=== PATIENT | female | born 1965 | race Caucasian/White ===

== ENCOUNTER → 2021-11-08 09:10 | Outpatient (BNVA) | payer OTHER, SELFPAY | PROVIDERS: PCP Internal Medicine; Visit Provider Internal Medicine Rheumatology | DX: M65.4 Radial styloid tenosynovitis [de Quervain] (principal); M25.531 Pain in right wrist | CPT/HCPCS: 20550 ==

== ENCOUNTER → 2022-09-19 09:48 | Outpatient (BNVA) | payer OTHER, SELFPAY | PROVIDERS: PCP Internal Medicine; Visit Provider Internal Medicine Rheumatology | DX: Z13.89 Encounter for screening for other disorder (principal) ==

== ENCOUNTER 2023-12-19 09:36 | Outpatient (AMB) | payer OTHER, SELFPAY ==
--- NOTE | 2023-12-19 09:39 | A.OFFVIS_ITS ---
Vital Signs 12/19/23 09:48 Height 5 ft 4 in Weight 201 lb 8.04 oz BMI 34.6 BP 115/80 Blood Pressure Location Rt brachial Position Sitting Respiration 16 Pulse 82 Pulse Source Pulse Oximeter Pulse Oximetry (%) 95 Oxygen Delivery Method Room Air Intake Visit Reasons: Rt Wrist pain/inj/CM Intake Note: Patient present for Rt. wrist pain/inj. Allergies No Known Allergies Allergy (Verified 12/19/23 09:43) Medication List - Last Reconciled 12/19/23 by Vivian Andrew MD albuterol sulfate 90 mcg/actuation 2 puffs inhalation Q6H PRN atorvastatin 20 mg PO DAILY cimetidine 200 mg PO BID cimetidine 300 mg PO BID cranberry 400 mg PO DAILY empagliflozin (Jardiance) 10 mg PO DAILY gabapentin 300 mg PO TID glipizide 10 mg PO QAM insulin glargine (Lantus Solostar U-100 Insulin) 10 units subcut QPM levothyroxine 100 mcg PO DAILY lisinopril 2.5 mg PO DAILY loratadine (Allergy Relief (loratadine)) 10 mg PO DAILY magnesium 500 mg PO DAILY metformin 1,000 mg PO BID milk thistle 500 mg PO DAILY montelukast (Singulair) 10 mg PO DAILY pen needle, diabetic (BD Ольга 2nd Gen Pen Needle) As directed sertraline 25 mg PO DAILY trazodone 50 mg PO BEDTIME HPI Comments Details: Patient returns requesting injection for return of her right wrist pain. She had an injection for de Quervain tenosynovitis the involving the right thumb extensor tendon. This was done by Dr. Garcia back in 09/2022. She stated that she had a total of 3 injections involving the right hand and to injections for the left hand. She stated that the injections usually last about a year. She feels that this time it lasted more than a year because she had time off of work for rotator cuff surgery. 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 She had similar symptoms in the left thumb that were injected in the past but have been stable recently. There has been no redness or swelling. [facility] Medical History Rotator cuff tear Dental crowns present Carpal tunnel syndrome of right wrist De Quervain's tenosynovitis, right Wrist pain, right Depression Hyperlipidemia Hypertension Type 2 diabetes mellitus Family History Mother Lung cancer Sister Breast cancer Family/Other Breast cancer Brother Prostate cancer Social History Household Members: Significant Other Both parents involved: No Caregiver staying overnight: No Housing: House Are you a primary career technical supervisor to a significant other at home: No Do you presently have visiting nurse or other home services: No 75 years or older and lives alone: No Alcohol intake: current Alcohol intake frequency: holidays/special occasions only Alcohol type: wine and hard liquor Patient Tobacco Use Status: Never used Tobacco e-Cigarette/Vaping Use: Never Used service: No Current occupational status: employed 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 Systems [employer] Reports arthralgias, Reports limited range of motion and Reports stiffness Physical Exam Vital Signs: Last Vital Signs Pulse 82 12/19/23 09:48 Resp 16 12/19/23 09:48 BP 115/80 12/19/23 09:48 Pulse Ox 95 12/19/23 09:48 Oxygen Delivery Method Room Air 12/19/23 09:48 BMI result Body Mass Index 34.6 Const General: cooperative, healthy appearing and comfortable Nutritional Appearance: obese Orientation/consciousness: patient oriented x3 Limitations: no limitations HEENT Head: Yes normocephalic and Yes atraumatic Mouth: moist mucous membranes Resp Effort & Inspection: normal respiratory effort and able to speak in complete sentences Skin General skin exam: no rashes or lesions noted Neuro General: patient oriented x3 Extrem Other: Positive Clayton's test on the right hand No CMC tenderness bilaterally Negative Clayton's test on the left Office Procedures Tendon Injection Tendon Injection Details: With patient's consent. The right wrist was prepped with ChloraPrep and alcohol. Under a topical ethyl chloride spray the thumb extensor tendon sheath was injected with 20 mg of triamcinolone and 0.2 cc of 1% lidocaine. The patient tolerated the procedure without any acute adverse effects. 63051-[id number] Tendon Sheath Injection All charges added?: Procedure code (CPT) selection complete Assessment & Plan Assessment & Plan (1) De Quervain's tenosynovitis, right: Comment: History of left de Quervain tenosynovitis injections, 4656-9204 Code(s): M65.4 - Radial styloid tenosynovitis [de Quervain] Category: Medical Plan: She has some return of pain along the thumb extensor tendon consistent with some de Quervain tenosynovitis.? We discussed possible surgical intervention or anoth er try with a local corticosteroid injection.? We reviewed potential side effects of such injections.? Including fat atrophy, skin depigmentation, spike in her blood sugar, patient has a blood sugar monitor and will give her cell an insulin shot using her sliding scale if needed when she gets home. ?The right wrist was prepped with ChloraPrep and alcohol.? Under a topical ethyl chloride spray the thumb extensor tendon sheath was injected with 20 mg of triamcinolone and 0.2 cc of 1% lidocaine.? The patient tolerated the procedure without any acute adverse effects.? She will see how this works out over the next few months.? If symptoms continue to recur here before 6 months or do not respond as well as previously she could call us for referral to see a hand surgeon. Plan I spent 15 minutes reviewing patient's chart, evaluating patient, counseling patient and documenting in the chart Orders: Orders AMB Tendon Injection Today M65.4 - Radial styloid tenosynovitis [de Quervain] Coding Level of Care Code Est Pt Level 3 (87938) Diagnoses De Quervain's tenosynovitis, right M65.4 CPT Codes Tendon Injection - Tendon Injection 1: 67746-Sjdyyz Tendon Sheath Injection ([id number])
[2023-12-19 09:48] VITALS: BP 115/80; PULSE 82; RESP 16; O2SAT 95; BMI 34.6
== END 2023-12-19 10:26 | disposition home or self-care (01) ==
PROVIDERS: PCP Internal Medicine; Visit Provider Student in an Organized Health Care Education/Training Program
DX: M65.4 Radial styloid tenosynovitis [de Quervain] (principal)
CPT/HCPCS: 20550; 99213

== ENCOUNTER → 2023-12-19 09:36 | Outpatient (BNVA) | payer OTHER, SELFPAY | PROVIDERS: PCP Internal Medicine; Visit Provider Student in an Organized Health Care Education/Training Program | DX: M65.4 Radial styloid tenosynovitis [de Quervain] (principal) | CPT/HCPCS: 20550; J3301 ==

== ENCOUNTER 2024-10-21 08:41 | Outpatient (AMB) | payer OTHER, SELFPAY ==
[2024-10-21 08:44] VITALS: BP 120/70; PULSE 86; O2SAT 98; BMI 29.2
--- NOTE | 2024-10-21 08:44 | A.OFFVIS_ITS ---
Vital Signs 10/21/24 08:44 Height 5 ft 4 in Weight 169 lb 15.622 oz BMI 29.2 BP 120/70 Blood Pressure Location Lt brachial Position Sitting Pulse 86 Pulse Source Pulse Oximeter Pulse Oximetry (%) 98 Oxygen Delivery Method Room Air Intake Visit Reasons: Rt Wrist Pain/inj Intake Note: Patient present for Rt. wrist pain/inj.? Allergies No Known Allergies Allergy (Verified 10/21/24 08:47) HPI HPI Rt Wrist Pain/inj: Details: Last Saturday she developed swelling. Bracing and icing helps. Takes aleve x2 BID and two tylenol. [facility] Medical History Rotator cuff tear Dental crowns present Carpal tunnel syndrome of right wrist De Quervain's tenosynovitis, right Wrist pain, right Depression Hyperlipidemia Hypertension Type 2 diabetes mellitus Family History Mother Lung cancer Sister Breast cancer Family/Other Breast cancer Brother Prostate cancer Social History Household Members: Significant Other Both parents involved: No Caregiver staying overnight: No Housing: House Are you a primary patient care coordinator to a significant other at home: No Do you presently have visiting nurse or other home services: No 75 years or older and lives alone: No Alcohol intake: current Alcohol intake frequency: holidays/special occasions only Alcohol type: wine and hard liquor Patient Tobacco Use Status: Never used Tobacco e-Cigarette/Vaping Use: Never Used service: No Current occupational status: employed 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 Tenderness to palpate along 1st extensor compartment.Positive Clayton test. Office Procedures AMB Tendon Injection Tendon Injection Details: Right 1st extensor compartment Prep: site was prepped using aseptic technique Injected: 10 mg of, Kenalog, with 0.25 mL of and 1% plain lidocaine Procedure: Verbal informed consent was obtained. The patient tolerated the procedure well. Postprocedure protocol was discussed with patient. [id number]-[id number] Tendon Sheath Injection All charges added?: Procedure code (CPT) selection complete Office Meds Kenalog 40 mg/mL suspension for injection Performing Provider: Josef Tam MD Performing Location: [facility] Administered by: Josef Tam MD on 10/21/24 09:21 Dose Route Admin Location Dispensed Lot Number Expiration Date [facility] [employer] 10 mg Tendon Sheath Inj. 1 mL [id number] [place] [employer] lidocaine (PF) 10 mg/mL (1 %) injection solution Performing Provider: Josef Tam MD Performing Location: [facility] Rheumatology-[facility] Administered by: Josef Tam MD on 10/21/24 09:21 Dose Route Admin Location Dispensed Lot Number Expiration Date [facility] [employer] 0.25 mL Infiltration 2 mL [id number] [facility] Assessment & Plan Assessment & Plan (1) De Quervain's tenosynovitis, right: Comment: History of right de Quervain tenosynovitis injections, 6090-1910, 11/08/2021, 09/19/2022, 12/19/2023. 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 Code(s): M65.4 - Radial styloid tenosynovitis [de Quervain] Category: Medical Plan: Patient received cortisone injection for treatment of right de Quervain tenosynovitis Return to clinic in 1 year or sooner if needed Orders: Orders AMB Tendon Injection Today M65.4 - Radial styloid tenosynovitis [de Quervain] Medications: New Kenalog (triamcinolone acetonide) 10 mg (0.25 mL) Tendon Sheath Inj. ONCE 0.25 mL 0RF NS M65.4 - Radial styloid tenosynovitis [de Quervain] lidocaine (PF) 0.25 mL Infiltration ONCE 2 mL 0RF M65.4 - Radial styloid tenosynovitis [de Quervain] Coding Level of Care Code Est Pt Level 3 (82054) Complex EM visit Add On G2211 Diagnoses De Quervain's tenosynovitis, right M65.4 CPT Codes Tendon Injection - Tendon Injection 1: 32127-Ktrdzd Tendon Sheath Injection ([id number])
--- OUTSIDE RECORDS SUMMARY | 2024-10-21 09:58 | XMS_ITS | Clinical Summary ---
Author Organization Former[facility] Address [address] [place] [address] Care Team Providers Care [employer] Plasma Etcher Name Role Phone Emmanuelle Jensen MD Primary Care Provider [phone] Allergies Active Allergy Reactions Criticality Noted Date Comments Seasonal 04/25/2020 Medications Medication Sig Dispensed Refills Start Date End Date Status glipiZIDE (GLUCOTROL XL) ER 24 hr tablet 2.5 mg Take 5 mg by mouth 2 (two) times a day. 0 Active metFORMIN (GLUCOPHAGE) tablet 500 mg Take 1,000 mg by mouth 2 (two) times a day with meals. 0 Active lisinopril (PRINIVIL,ZESTRIL) tablet 2.5 mg Take 2.5 mg by mouth daily. 0 Active montelukast (SINGULAIR) 10 MG tablet Take 10 mg by mouth every night at bedtime. 0 Active levothyroxine (SYNTHROID, LEVOXYL) tablet 100 mcg Take 100 mcg by mouth every morning on an empty stomach. 0 Active loratadine (CLARITIN) 10 MG tablet Take 10 mg by mouth daily. 0 Active traZODone (DESYREL) 50 MG tablet Take 50 mg by mouth every night at bedtime. 0 Active sertraline (ZOLOFT) 50 MG tablet Take 50 mg by mouth daily. 0 Active gabapentin (NEURONTIN) 300 MG capsule Take 300 mg by mouth 3 (three) times a day. 0 Active LORazepam (ATIVAN) 0.5 MG tablet Take 0.5 mg by mouth daily. 0 Active atorvastatin (LIPITOR) tablet 20 mg Take 20 mg by mouth daily. 0 Active albuterol (PROVENTIL) (2.5 MG/3ML) 0.083% nebulizer solution Take 2.5 mg by nebulization every 4 (four) hours as needed for wheezing. 0 Active albuterol (PROVENTIL HFA;VENTOLIN HFA) 108 (90 Base) MCG/ACT inhaler Inhale 2 puffs into the lungs every 4 (four) hours as needed for wheezing. 0 Active levonorgestrel (MIRENA, 52 MG,) 20 MCG/24HR IUD 1 each by Intrauterine route once. 0 Active polyethylene glycol (MIRALAX) 17 g packet Take 17 g by mouth daily. 0 Active docusate sodium (COLACE) 100 MG capsule Take 100 mg by mouth 2 (two) times a day. 0 Active aspirin EC 81 MG tablet Take 81 mg by mouth daily. 0 Active ketoconazole (NIZORAL) 2 % cream Apply 1 application topically 2 (two) times a day. 0 Active cimetidine (TAGAMET) 300 MG tablet Take 300 mg by mouth 2 (two) times a day. 0 03/28/2020 Active Active Problems Problem Noted Date Diagnosed Date LUQ abdominal pain 05/19/2020 Lesion of right yocha dehe kidney 04/29/2020 Splenomegaly 04/28/2020 Anxiety 02/20/2017 RAD (reactive airway disease) 02/20/2017 RLS (restless legs syndrome) 02/20/2017 Obesity (BMI 30.0-34.9) 10/23/2016 Epigastric pain 11/04/2014 Overview: Overview: See notes 06/05/13 Fatty liver 11/04/2014 Overview: Overview: See Notes 06/05/2013 HTN (hypertension) 07/02/2013 Pure hypercholesterolemia 07/02/2013 Cervical high risk human pap illomavirus (HPV) DNA test positive 04/08/2013 Overview: Overview: Normal cytology, + HPV 2011 Fibromyalgia 04/23/2012 CTS (carpal tunnel syndrome) 10/12/2010 Hypothyroid 01/13/2008 Overview: Overview: IMO update Type 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 Please check your sugars at the following times of day: before breakfast, before dinner and before bedtime Your Blood Sugar Goals Pre Meal: 90-130 2 hours after meals: 110-160 Bedtime: 110-150 Use the Results ?? Bring your glucometer to every appointment ?? Write your fingerstick blood sugars down on a log sheet or record book. Bring them to your appointment ?? Look for patterns in the numbers. The results help you and your provider make decisions about your diabetes treatment plan. Your Results and your Goals Your Result / Date of Completion Your Goal / How Often to Assess Component Value Date HGBA1C 7.3 03/17/2013 Less than 7%--- 2-4 times per year BP Readings from Last 1 Encounters: 03/23/13 117/76 Less than 130/80--- once per year Component Value Date LDL 92 03/17/2013 LDL less than 100--- once per year Component Value Date MALBUR 3.2 12/11/2012 Less than 30--- once per year Wt Readings from Last 1 Encounters: 03/23/13 228 lb 9.6 oz (103.692 kg) Your goal weight by next visit: 220 --- reassess 2-4 times a year Health Maintenance Due Topic Date Due ? ? Hepatitis C Screening 12/24/1981 ? ? Adult Immunization: Tetanus Diptheria And Pertussis (Tdap) 12/24/1982 ? ? Diabetes: Annual Care Plan 08/12/2012 ? ? Diabetes: Annual Foot Exam 08/30/2012 ? ? Diabetes: Annual Eye Exam 10/18/2012 ? ? Adult Immunization: Influenza For High Risk Patients 02/01/2013 Your Action Plan Start/adjust diabetic medications as directed. Check blood glucose as directed and write down all results. Continue to work on weight loss with a goal of losing 2-4 pounds per month Contact me if you experience any barriers to care such as inability to purchase your medication, difficulty getting to your appointments or difficulty understanding your care plan When to Call your Healthcare Provider If your blood sugar falls below 70 and you do not know why or you become unconscious If you are sick and unable to take liquids because or nausea or vomiting If you have a fever over 101 If your blood sugar is 300 or higher on greater than 3 separate occasions during the same week If you are just unsure what to do Educational Resources [place] [employer] (www.diabetes.org) Centers for Disease Control and Prevention (www.cdc.gov/diabetes) This care plan was created in collaboration with Diana Valle on 03/23/2013 Depression 06/25/2005 Family History Medical History Relation Name Comments Other Maternal Uncle Lung cancer Mother Breast cancer Niece Breast cancer Sister Lymphoma Neg Hx Relation Name Status Comments Maternal Uncle Myelofibrosis Mother (Age 80s) Niece Alive Breast cancer a ge 30 Sister Alive Breast cancer a t age 65 Social History Tobacco Use Types Packs/Day Years Used Date Smoking Tobacco: Former Cigarettes Q uit: 06/03/1987 Smokeless Tobacco: Never Alcohol Use Standard Drinks/Week Comments No 0 (1 standard drink = 0.6 oz pur e alcohol) Sex and Gender Information Value Date Recorded Sex Assigned at Not on file Gender Identity Not on file Sexual Orientation Not on file Job Start Date Occupation Industry Not on file Not on file Not on file Last Filed Vital Signs Vital Sign Reading Time Taken Comments Blood Pressure 134/74 05/19/2020 3:00 PM EST Pulse 81 05/19/2020 3:00 PM EST Temperature 36.6 ??C (97.9 ??F) 05/19/2020 3:00 PM ES T Respiratory Rate - - Oxygen Saturation 98% 04/27/2020 2:45 PM EST Inhaled Oxygen Concentration - - Weight 90.3 kg (199 lb) 05/19/2020 3:00 PM EST Height 161.3 cm (5' 3.5 ) 05/19/2020 3:00 PM EST Body Mass Index 34.7 05/19/2020 3:00 PM EST Plan of Treatment Health Maintenance Due Date Last Done Comments Hepatitis C Screening 1965 COVID-19 Vaccine (#1) 06/26/1964 Depression Screening 1975 BMI Counseling 12/24/1981 Preventative Health Evaluation 12/24/1981 Cervical Cancer Screening (Pap Smear) 12/24/1984 Pneumococcal Vaccine (2 of 2 - PCV) 04/17/2007 04/17/2006 Colon Cancer Screening (Colonoscopy) 12/24/2008 Breast Cancer Screening (Mammogram) 12/24/2013 Shingrix-Zoster Vaccine (1 of 2) 12/24/2013 DTap / Tdap / Td (2 - Td or Tdap) 03/23/2023 03/23/2013 Influenza Vaccine (#1) 2024 , 02/19/2017, 02/17/2016, Additional history exists RSV Adult > 60+ Yrs or (1 - 1-dose 75+ series) 12/24/2038 Hepatitis B Vaccines Aged Out No long er eligible based on patient's age to complete this topic RSV Ped < 20 months Aged Out No longe r eligible based on patient's age to complete this topic Care Teams [employer] Plasma Etcher Relationship Specialty Start Date End Date Emmanuelle Jensen MD PCP - General Internal Medicine 04/20/20
--- OUTSIDE RECORDS SUMMARY | 2024-10-21 09:58 | XMS_ITS | Clinical Summary ---
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 12/23/19 24 Active ketoconazole (NIZORAL) 2 % cream Apply cream to Affected area twice daily 09/27/19 24 Active glipiZIDE (GLUCOTROL) 5 mg tablet Take 1 tablet (5 mg total) by mouth 1 (one) time each day before breakfast. 07/22/19 24 Active albuterol HFA (PROAIR HFA ; PROVENTIL HFA ; VENTOLIN HFA) 90 mcg/actuation inhaler Take 2 puffs by mouth every 4 (four) hours if needed for wheezing (cough). 06/12/19 24 Active albuterol 2.5 mg /3 mL (0.083 %) nebulizer solution Take 1 Vial by nebulization every 4 hours as needed for Wheezing 06/12/19 24 Active metFORMIN (GLUCOPHAGE) 500 mg tablet Take 2 tablets (1,000 mg total) by mouth 2 (two) times a day with meals. 06/10/19 24 Active insulin lispro (HumaLOG KwikPen Insulin) 100 unit/mL injection pen Use before each meal, up to 3 times a day, sliding scale <199: 0 units 200-249: 3 units 250-299: 4 units 300-349:5 units 350-400: 6 units Greater than 400, call me. 05/03/20 23 Active pen needle, diabetic (Insupen Pen Needle) 32 gauge x /32 needle Use to inject insulin Up to 4 times daily 05/03/20 23 Active glucose blood (FreeStyle Precision Anderson Strips) test strip Test blood sugar 4 x da 08/05/19 21 Active LANCETS MISC Use to check blood sugars four times daily with the Contour Glucometer 08/04/19 21 Active POLYETHYLENE GLYCOL 3350 ORAL Take by mouth if needed. Active docusate sodium (COLACE) 100 mg capsule Take 1 capsule (100 mg total) by mouth 2 (two) times a day. Active cimetidine (TAGAMET) 300 mg tablet Take 1 tablet by mouth twice daily 180 tablet 1 04/07/20 24 Active blood-glucose sensor (FreeStyle Koki 3 Plus Sensor) deviceIndicati ons:Type 2 diabetes mellitus with hyperglycemia, with long-term current use of insulin ([facility] V24, [facility] V28) Apply 1 sensor every 14 days 2 each 5 04/28/20 24 Active traZODone (DESYREL) 50 mg tablet TAKE 1 TABLET BY MOUTH AT BEDTIME 90 tablet 08/11/19 25 Active levothyroxine (SYNTHROID, LEVOTHROID) 100 mcg tabletIndicati ons:Hypothyroi dism, unspecified Take 1 tablet by mouth once daily 90 tablet 1 09/01/19 25 Active Allergy Relief, loratadine, 10 mg tablet Take 1 tablet by mouth once daily 90 tablet 1 09/01/19 25 Active atorvastatin (LIPITOR) 20 mg tablet TAKE 1 TABLET BY MOUTH ONCE DAILY. ( PT. NEEDS FASTING LABS DONE. ) 90 tablet 09/09/19 25 Active lisinopriL (PRINIVIL,ZEST RIL) 2.5 mg tablet Take 1 tablet by mouth once daily 90 tablet 09/09/19 25 Active montelukast (SINGULAIR) 10 mg tablet TAKE 1 TABLET BY MOUTH AT BEDTIME 90 tablet 09/09/19 25 Active Jardiance 25 mg tabletIndicati ons:Type 2 diabetes mellitus with diabetic cataract ([facility] V24, [facility] V28) Take 1 tablet by mouth once daily 30 tablet 2 09/19/19 25 Active semaglutide (OZEMPIC) 1 mg/dose (4 mg/3 mL) injection penIndications :Diabetes mellitus with cataract ([facility] V24, [facility] V28) Use 1mg once weekly 3 mL 5 09/23/19 25 Active insulin glargine (Lantus Solostar U-100 Insulin) 100 unit/mL (3 mL) injection pen Inject 18-20 Units into the skin at bedtime. 09/23/19 25 Active sertraline (ZOLOFT) 50 mg tablet Take 1 tablet by mouth once daily 90 tablet 10/06/19 25 Active insulin glargine (Lantus Solostar U-100 Insulin) 100 unit/mL (3 mL) injection pen Inject 20-26 Units into the skin at bedtime. 03/18/20 23 2024 Discontinued(Priyanka barnes) sertraline (ZOLOFT) 50 mg tablet Take 1 tablet by mouth once daily 90 tablet 1 04/07/20 24 2024 Discontinued semaglutide (Ozempic) 0.25 mg or 0.5 mg (2 mg/3 mL) injection penIndications :Diabetes mellitus with cataract ([facility] V24, [facility] V28) Inject 0.5 mg under the skin every 7 (seven) days. Inject 0.5 mg into the skin once a week ,Subcutaneous 3 mL 2 08/21/19 25 2024 Discontinued Active Problems Problem Noted Date Diagnosed Date Left ovarian cyst 07/31/2023 Overview (03/09/2024): CA 125 normal, repeat US shows resolution and new simple appearing 1.5 cm cyst vs decrease in size and complexity of previously noted cyst. No further imaging recommended. Postmenopausal bleeding 10/22/2022 Overview (03/09/2024): Last Assessment & Plan: I discussed the common causes of postmenopausal bleeding including trauma, atrophy, and endometrial polyps, as well as less common but more concerning causes including endometrial hyperplasia and endometrial carcinoma. Pap smear collected given history, although cervix appears normal on exam. Recommend pelvic ultrasound, which was ordered today. Discussed recommendation for endometrial sampling, as well, which was performed today after obtaining consent. We discussed postprocedure cramping and light bleeding. Advised to avoid anything in the vagina for three days. Advised to call with increasing pain, heavy bleeding, or fever. Pt will be informed of results when available. Diabetes mellitus with cataract ([facility] V24, [facility] V28) 11/03/2021 Overview (03/09/2024): Eye exam 07/18/2021. Genetic predisposition to breast cancer 09/22/19 Overview (03/09/2024): Last Assessment & Plan: IUD removed. Ordered MRI and mammo to be alternated every 6 months for breast cancer screening. Severe obesity (BMI 35.0-39. 9) with comorbidity ([facility] V24, [facility] V28) 08/24/2021 Family history of gene mutation 09/28/2020 Overview (05/20/2024): Sister with Chek 2 mutation and breast cancer. Renal cyst 05/06/2020 Overview (03/09/2024): Right renal cyst 1.6cm noted on renal ultrasound on 05/02/2020 Lipoma of torso 10/13/2018 Insomnia 09/17/2017 Anxiety 02/20/2017 RAD (reactive airway disease) 02/20/2017 RLS (restless legs syndrome) 02/20/2017 Obesity (BMI 30.0-34.9) 10/23/2016 Epigastric pain 11/04/2014 Overview (03/09/2024): See notes 06/05/13 Fatty liver 11/04/2014 Overview (03/09/2024): See Notes 06/05/2013 Plantar fasciitis 11/04/2014 Overview (03/09/2024): DX 09/2014 HTN (hypertension) 07/02/2013 Pure hypercholesterolemia 07/02/2013 Cervical high risk human pap illomavirus (HPV) DNA test positive 04/08/2013 Overview (03/09/2024): Normal cytology, + HPV 10/2022 NIL neg HPV Fibromyalgia 04/23/2012 CTS (carpal tunnel syndrome) 10/12/2010 Hypothyroid 01/13/2008 Type II or unspecified type diabetes mellitus with neurological manifestations, uncontrolled(250.62) ([facility] V24, [facility] V28) 12/20/2005 Overview (03/09/2024): On meds since November 2005 History CTS [...] Health Maintenance Due Topic Date Due ? Hepatitis C Screening 12/24/1981 ? Adult Immunization: Tetanus Diptheria And Pertussis (Tdap) 12/24/1982 ? Diabetes: Annual Care Plan 08/12/2012 ? Diabetes: Annual Foot Exam 08/30/2012 ? Diabetes: Annual Eye Exam 10/18/2012 ? Adult Immunization: Influenza For High Risk [...] just unsure what to do Educational Resources [place] [employer] (www.diabetes.org) Centers for Disease Control and Prevention (www.cdc.gov/diabetes) This care plan was created in collaboration with Diana Valle on 03/23/2013 Goiter 11/22/2005 Overview (03/09/2024): IMO update Depression 06/25/2005 Encounters Date Type Department Care Team Description 10/05/2024 Telephone Adult Medicine [address] [phone] Vilma Ross [place] 09/22/2024 4:20 PM EDT Office Visit Endocrinology - [address] [phone] Nancy Freeman PA Diabetes mellitus with cataract (CMS/HCC V24, CMS/HCC V28) (Primary Dx); Hypothyroidism, unspecified type; Primary hypertension; Hyperlipidemia, unspecified hyperlipidemia type; Obesity (BMI 30.0-34.9) 08/12/2024 Telephone Adult Medicine [address] [phone] Emmanuelle Jensen MD Abdominal Pain (RIGHT SIDE MID ABDOMINAL PAIN TRIAGE) from Last 3 Months Immunizations Name Administration Dates Next Due H1N1 Inj Preservative Free 05/08/2009 Influenza Quadravalent, MDCK , 0.5ml, preservative free (Flucelvax) 6mo and older 02/28/2023,03/09/2021 Influenza Quadravalent, MDCK , 0.5ml, with preservative (Flucelvax) 6mo and older 03/16/2018,02/19/2017 Influenza trivalent, with pr eservative (Fluzone; Afluria) 6mo and older 04/24/2024,03/21/2022,02/17/2016,02/11,04/13/2014,02/07/2012,03/17/2010 ,02/09/2009,03/17/2008,04/12/2007,02/2006,04/07/2005 Influenza, Unspecified 03/21/2022 [facility] SARS-CoV-2 COVID-19, mRNA, LNP-S, preservative free 03/22/2021,09/01/2020,08/11/2020 Pneumococcal polysaccharide 23 valent (Pneumovax 23) 2yo and older 04/17/2006 SARS-COV-2 (COVID-19) Vaccin e, Unspecified 03/29/2022 Td, Unspecified 10/25/2003 Tdap Tetanus diptheria acell ular pertussis (Boostrix; Adacel) 7yo and older 03/23/2013 Zoster recombinant (Shingrix ) 19yo and older 02/22/2020,11/24/2019 Surgical History Surgery Date Site/Laterality Comments CHOLECYSTECTOMY 2000 PROCEDURE: HISTORICAL CHOLECYSTECTOMY OTHER SURGICAL HISTORY 1981 PROCEDURE: ---- OTHER ----; COMMENT: deviated septum OTHER SURGICAL HISTORY 2006 PROCEDURE: ---- OTHER ----; COMMENT: r wrist cyst CERVICAL BIOPSY W/ LOOP ELECTRODE EXCISION PROCEDURE: HISTORICAL CONE BIOPSY COLONOSCOPY 09/09/2014 PROCEDURE: HISTORICAL COLONOSCOPY; COMMENT: tics and hemorrhoids; repeat in 10 yrs EXCISION BENIGN SKIN LESION TRUNK / ARM / LEG Right PROCEDURE: [place] EXCISION TUMOR SOFT TISSUE BACK/FLANK SUBQ <3CM; COMMENT: had one excised in 2019 and 2013 UPPER GASTROINTESTINAL ENDOSCOPY 05/09/2020 PROCEDURE: [place] UPPER GI ENDOSCOPY PERFORMED; COMMENT: normal COLONOSCOPY 09/28/2020 PROCEDURE: HISTORICAL COLONOSCOPY; COMMENT: Negative screening examination, minimal diverticulosis, repeat in 5 years. Family history of CHEK2 mutation. SHOULDER SURGERY 08/01/2023 Left PROCEDURE: HISTORICAL SHOULDER SURGERY; COMMENT: left rotator cuff repair with augmentation and subacromial decompression Medical History Medical History Date Comments Unspecified asthma(493.90) 06/25/2005 DX:Un specified asthma(493.90) Depressive disorder, not els ewhere classified 06/25/2005 DX:Depressive disorder, not elsewhere classified Type II or unspecified type diabetes mellitus without mention of complication, not stated as uncontrolled 12/20/2005 DX:Type II or unspecified ty pe diabetes mellitus without mention of complication, not stated as uncontrolled; COMMENT: On meds since November 2005 Malignant neoplasm of endoce rvix (CMS/HCC V24, CMS/HCC V28) DX:Malignant neoplasm of en docervix (HCC); COMMENT: treated with cone biopsy Deviated nasal septum 1981 DX:Deviate d nasal septum; COMMENT: operated on Hypothyroid 01/13/2008 DX:Hypothyroid Pure hypercholesterolemia 07/02/2013 DX:Pur e hypercholesterolemia HTN (hypertension) 07/02/2013 DX:HTN (hyper tension) Other specified personal his tory presenting hazards to health(V15.89) 1985 DX:Other specifie d personal history presenting hazards to health(V15.89); COMMENT: cervical Fibromyalgia DX:Fibromyalgia Carpal tunnel syndrome of left wrist DX:Carpal tunnel syndrome of left wrist Tinnitus DX:Tinnitus Family history of gene mutation 09/28/2020 DX:Family history of gene mutation; COMMENT: Sister with Chek 2 mutation and breast cancer. Lipoma of back 11/10/2015 DX:Lipoma of sudeep k Family History Medical History Relation Name Comments Diabetes Brother 1 Heart attack Brother 1 Prostate cancer Brother 1 Heart attack Brother 2 Diabetes Father Hypertension Father Multiple myeloma Father Other: goiter Maternal Grandmother Arthritis Mother hands Lung cancer Mother never smoked, d eceased Other: osteoporosis Mother hyperthy roidism, lung cancer Breast cancer Other Niece 30 Heart attack Paternal Grandfather at age 92 from [place], smoker Arthritis Paternal Grandmother hands Diabetes Paternal Grandmother Breast cancer Sister Bilateral zulema st cancer-64---CHEK 2 pos; HER2 pos. Cancer of Small Bowel Neg Hx Colon cancer Neg Hx Kidney cancer Neg Hx Ovarian cancer Neg Hx Pancreatic cancer Neg Hx Uterine cancer Neg Hx Relation Name Status Comments Brother 1 Alive Brother 2 Alive Brother 3 Alive Brother 4 Alive Father 202 2 age 90yo Maternal Grandfather Maternal Grandmother Mother (Age 83) lung cance r Other Niece 30 Alive Paternal Grandfather Paternal Grandmother Sister Alive Social History Tobacco Use Types Packs/Day Years Used Date Smoking Tobacco: Former Cigarettes 0.5 11.7 0 09/18/1975 - 06/03/1987 Smokeless Tobacco: Never Tobacco Cessation:Counseling Given: Not Answered Alcohol Use Standard Drinks/Week Comments Yes 0 (1 standard drink = 0.6 oz pur e alcohol) Comments Unknown Sex and Gender Information Value Date Recorded Sex Assigned at Not on file Legal Sex Female 10:15 PM EST Gender Identity Not on file Sexual Orientation Not on file Obstetrics History Para Term AB IAB SAB Ectopic Multiple Livin g Live Births 1 1 1 1 Date Outcome GA Total Labor Labor/2nd/3rd Weight Sex Type Anes PTL Dara A1 A5 Name Clin Term Last Filed Vital Signs Vital Sign Reading Time Taken Comments Blood Pressure 117/73 09/22/2024 4:20 PM EDT Pulse 95 09/22/2024 4:20 PM EDT Temperature 36.2 ??C (97.2 ??F) 09/22/2024 4:20 PM ED T Respiratory Rate 16 07/20/2024 4:19 PM EST Oxygen Saturation 96% 09/22/2024 4:20 PM EDT Inhaled Oxygen Concentration - - Weight 80.3 kg (177 lb) 09/22/2024 4:20 PM EDT Height 162.6 cm (5' 4 ) 09/22/2024 4:20 PM EDT Body Mass Index 30.38 09/22/2024 4:20 PM EDT Plan of Treatment Upcoming Encounters Date Type Department Care Team (Late st Contact Info) Description 12/22/2024 9:45 AM EDT Office Visit Adult Medicine [address] [phone] Emmanuelle Jensen MD [address] [place], [place] 04/16/2025 4:20 PM EST Office Visit Endocrinology - [facility] [address] [place] [phone] Nancy Freeman PA [address] [place] [address] Health Maintenance Due Date Last Done Comments Diabetes: Annual Foot Exam 12/24/1973 Hepatitis A Vaccines (1 of 2 - Risk 2-dose series) 12/24/1982 HIV Screening 05/12/2022 Social Influencers of Health Screening 05/12/2022 Hepatitis B Vaccines (1 of 3 - Risk 3-dose series) 2023 RSV Immunization Adult Patients (1 - Risk 60-74 years 1-dose series) 2023 COVID-19 Vaccine ( season) 2024 03/29/2022, 03/22/2021, 09/01/2020, Additional history exists Diabetes: Blood Sugar Control Test (HGBA1C) 02/12/2025 08/12/2024, 04/14/2024, 12/03/2023, Additional history exists Diabetes: Annual Urine Albumin-Creatinine Ratio (uACR) 04/14/2025 04/14/2024, 02/20/2023 Diabetes: Annual GFR (Glomerular Filtration Rate) 04/14/2025 04/14/2024, 08/15/2023 Hypertension/CHF/CAD Annual BMP Blood Test 04/14/2025 04/14/2024, 08/15/2023 Depression Screening 07/19/2025 07/19/2024 Colorectal Cancer Screening: Colonoscopy 09/28/2025 09/28/2020 Diabetes: Annual Retina Eye Exam 09/29/2025 09/29/2024 Breast Cancer Screening 04/28/2026 04/28/20, 04/22/2023, 04/18/2022, Additional history exists Cervical Cancer Screening: HPV 10/23/2027 10/22/2022 Cholesterol Screening (Lipid Panel) 04/14/2029 04/14/2024, 04/29/2023 DTaP,Tdap,and Td Vaccines (4 - Td or Tdap) 10/19/2033 10/20/2023, 03/23/2013, 10/25/2003 Hepatitis C Screening Completed 11/24/2014 Zoster Vaccines Completed 02/22/2020, 11/24/2019 Pneumococcal Vaccine: 50+ Years Completed 10/20/2023, 04/17/2006 Pneumococcal Vaccine: Pediatrics (0 to 5 Years) and At-Risk Patients (6 to 64 Years) Completed 10/20/2023, 04/17/2006 Influenza Vaccine Completed 04/24/2024, , 02/28/2023, Additional history exists HIB Vaccines Aged Out No longer eligi ble based on patient's age to complete this topic HPV Vaccines Aged Out No longer eligi ble based on patient's age to complete this topic IPV Vaccines Aged Out No longer eligi ble based on patient's age to complete this topic MMR Vaccines Aged Out No longer eligi ble based on patient's age to complete this topic Meningococcal ACWY Vaccine Aged Out N o longer eligible based on patient's age to complete this topic Meningococcal B Vaccine Aged Out No l onger eligible based on patient's age to complete this topic RSV Immunization Patients Under 20 months Aged Out No longer eligible based on patient's age to complete this topic Varicella Vaccines Aged Out No longer eligible based on patient's age to complete this topic Procedures Procedure Name Priority Date/Time Associated Diagnosis Comments RUBELLA ANTIBODY IGG Routine 10/14/2024 10:27 AM EDT Antibody response exam Screening for endocrine, metabolic and immunity disorder MUMPS ANTIBODY IGG Routine 10/14/2024 10 :27 AM EDT Antibody response exam Screening for endocrine, metabolic and immunity disorder RUBEOLA ANTIBODY IGG Routine 10/14/2024 10:27 AM EDT Antibody response exam Screening for endocrine, metabolic and immunity disorder EXTERNAL DIABETIC RETINA EYE EXAM 09/29/2024 THYROID STIMULATING HORMONE WITH REFLEX TO FREE T4 AND FREE T3 Routine 08/12/2024 1:04 PM EDT Type 2 diabetes mellitus with diabetic cataract, unspecified whether detention insulin use ([facility] V24, [facility] V28) Hypothyroidism, unspecified type HEMOGLOBIN A1C Routine 08/12/2024 1:04 PM EDT Type 2 diabetes mellitus with diabetic cataract, unspecified whether detention insulin use ([facility] V24, [facility] V28) MG MAMMO DIGITAL SCREENING W JASWINDER BILAT Routine 04/28/2024 4:04 PM EST Encounter for screening mammogram for breast cancer MICROALBUMIN CREATININE URINE RATIO Routine 04/14/2024 7:40 AM EST Type 2 diabetes mellitus with diabetic cataract, unspecified whether detention insulin use ([facility] V24, [facility] V28) BASIC METABOLIC PANEL Routine 04/14/2024 7:40 AM EST Type 2 diabetes mellitus with diabetic cataract, unspecified whether lobsterman insulin use ([facility] V24, [facility] V28) LIPID PANEL WITH REFLEX TO DIRECT LDL Routine 04/14/2024 7:40 AM EST Type 2 diabetes mellitus with diabetic cataract, unspecified whether lobsterman insulin use ([facility] V24, [facility] V28) HM HPV Routine 10/22/2022 HM COLONOSCOPY Routine 09/28/2020 HEPATITIS C SCREENING Routine 11/24/2014 from Last 3 Months or Most Recently Relevant to Health Maintenance Results * Rubeola antibody IgG (10/14/2024 10:27 AM EDT) Rubeola IgG Positive Positive LAB CHEMISTRY METHOD 10/14/2024 2:56 PM EDT [facility] Rubeola IgG Antibody, measured 30.40 >=16.50 AU/mL LAB CHEMISTRY METHOD 10/14/2024 2:56 PM EDT [facility] Blood Venous blood specimen / Unknown Venipuncture / Unknown 10/14/2024 10:27 AM EDT 10/14/2024 10:27 AM EDT [facility] - 10/14/2024 2:56 PM EDT Interpretation >=16.5 AU/ml is considered to be consistent with Immunity us Emmanuelle Jensen MD LAB BLOOD ORDERABLES Final Resul t Performing Organization Address [facility]/ZIP Co de Phone Number [facility] [address] [place] [address], [place] [phone] * Rubella antibody IgG (10/14/2024 10:27 AM EDT) Rubella IgG Quant 149.9 >=10.0 I Unit/mL LAB CHEMISTRY METHOD 10/14/2024 1:13 PM EDT [facility] Rubella IgG Antibody Interp Positive Positive LAB CHEMISTRY METHOD 10/14/2024 1:13 PM EDT [facility] Blood Venous blood specimen / Unknown Venipuncture / Unknown 10/14/2024 10:27 AM EDT 10/14/2024 10:27 AM EDT us Emmanuelle Jensen MD LAB BLOOD ORDERABLES Final Resul t Performing Organization Address [facility]/ZIP Co de Phone Number [facility] [address] [place] [address], [place] [phone] * Mumps antibody IgG (10/14/2024 10:27 AM EDT) Mumps IgG Positive Positive LAB CHEMISTRY METHOD 10/14/2024 2:56 PM EDT [facility] Mumps IgG Antibody, measured 230.0 >=11.0 AU/mL LAB CHEMISTRY METHOD 10/14/2024 2:56 PM EDT [facility] Blood Venous blood specimen / Unknown Venipuncture / Unknown 10/14/2024 10:27 AM EDT 10/14/2024 10:27 AM EDT Narrative [facility] - 10/14/2024 2:56 PM EDT >=11 AU/mL is considered to be consistent with Immunity. us Emmanuelle Jensen MD LAB BLOOD ORDERABLES Final Resul t Performing Organization Address City/[facility]/ZIP Co de Phone Number [facility] [address] [place] [address], [place] [phone] * External Diabetic Retina Eye Exam Report (09/29/2024) Anatomical Region Laterality Modality Ultrasound us Provider [facility] US PROCEDURES Final Result * Thyroid stimulating hormone with reflex to free t4 and free t3 (08/12/2024 1:04 PM EDT) TSH 1.48 0.40 - 4.00 mcIU/mL LAB CHEMISTRY METHOD 08/12/2024 8:55 PM EDT [facility] Blood Venous blood specimen / Unknown Venipuncture / Unknown 08/12/2024 1:04 PM EDT 08/12/2024 1:05 PM EDT us Nancy HOUSE LAB BLOOD ORDERABLES Final Resul t Performing Organization Address [facility]/ZIP Co de Phone Number [facility] [address] [place] [address], [place] [phone] * Hemoglobin A1c (08/12/2024 1:04 PM EDT) Hemoglobin A1C 6.3 <6.5 % LAB CHEMISTRY METHOD 08/12/2024 9:06 PM EDT [facility] Mean Bld Glu Estim. 134 mg/dL LAB CHEMISTRY METHOD 08/12/2024 9:06 PM EDT [facility] Blood Venous blood specimen / Unknown Venipuncture / Unknown 08/12/2024 1:04 PM EDT 08/12/2024 1:05 PM EDT us Nancy HOUSE LAB BLOOD ORDERABLES Final Resul t [facility] [address] [place] [address], [place] [phone] * MG Mammo Digital Screening w Jaswinder bilat (04/28/2024 4:04 PM EST) Anatomical Region Laterality Modality Breast Bilateral Mammography 04/29/2024 4:04 PM EST Impressions 04/29/2024 4:13 PM EST No mammographic evidence for malignancy. BI-RADS CATEGORY: 1 - NEGATIVE RECOMMENDATION: Screening bilateral mammogram is recommended in 1 year. Mammo Location: [facility], [address] [place] [address], [phone], . -------- FINAL REPORT -------- Dictated By: Sallie Dash Dictated Date: 04/29/2024 16:04 ET Assigned Physician: Sallie Dash Reviewed and Electronically Signed By: Sallie Dash Signed Date: 04/29/2024 16:13 ET Workstation ID: [id number] Transcribed By: Self Edit Transcribed Date: 04/29/2024 16:04 ET Narrative 04/29/2024 4:13 PM EST Bilateral screening mammogram. CLINICAL: 58 years old, Female, routine annual exam. COMPARISON: 04/22/2023 ?? TECHNIQUE: Bilateral MLO and CC views were obtained digitally with 3-D mammogram (digital breast tomosynthesis). Computer-aided detection was utilized in evaluation of this exam (CAD). FINDINGS: There is no evidence of suspicious mass or architectural distortion. ??No worrisome calcifications are evident. ??There has been no significant change from prior exam(s). ?? BREAST DENSITY: B - There are scattered areas of fibroglandular density. Procedure Note Sallie Dash MD - 04/29/2024 Bilateral screening mammogram. CLINICAL: 58 years old, Female, routine annual exam. COMPARISON: 04/22/2023 TECHNIQUE: Bilateral MLO and CC views were obtained digitally with 3-Dmammogram (digital breast tomosynthesis). Computer-aided detection wasutilized in evaluation of this exam (CAD). FINDINGS: There is no evidence of suspicious mass or architectural distortion. Noworrisome calcifications are evident. There has been no significantchange from prior exam(s). BREAST DENSITY: B - There are scattered areas of fibroglandular density. IMPRESSION: No mammographic evidence for malignancy. BI-RADS CATEGORY: 1 - NEGATIVE RECOMMENDATION: Screening bilateral mammogram is recommended in 1 year. Mammo Location: [facility], [address] [place] [address], [id number], . -------- FINAL REPORT -------- Dictated By: Sallie Dash Dictated Date: 04/29/2024 16:04 ET Assigned Physician: Sallie Dash Reviewed and Electronically Signed By: Sallie Dash Signed Date: 04/29/2024 16:13 ET Workstation ID: [id number] Transcribed By: Self Edit Transcribed Date: 04/29/2024 16:04 ET Emmanuelle Jensen MD IM BI PROCEDURES Final Result * (ABNORMAL) Lipid panel with reflex to direct LDL (04/14/2024 7:40 AM EST) Cholesterol 159 0 - 200 mg/dL LAB CHEMISTRY METHOD 04/14/2024 10:44 AM [facility] Triglycerides 153(H) 0 - 150 mg/dL LAB CHEMISTRY METHOD 04/14/2024 10:44 AM [facility] HDL 45 >=40 mg/dL LAB CHEMISTRY METHOD 04/14/2024 10:44 AM [facility] LDL Calculated 83 0 - 100 mg/dL LAB CHEMISTRY METHOD 04/14/2024 10:44 AM [facility] VLDL Cholesterol Ze 30.6 mg/dL LAB CHEMISTRY METHOD 04/14/2024 10:44 AM [facility] Non HDL Chol. (LDL+VLDL) 114 <145 mg/dL LAB CHEMISTRY METHOD 04/14/2024 10:44 AM [facility] Chol/HDL Ratio 3.5 0.0 - 4.4 LAB CHEMISTRY METHOD 04/14/2024 10:44 AM EST [facility] Blood Venous blood specimen / Unknown Venipuncture / Unknown 04/14/2024 7:40 AM EST 04/14/2024 7:40 AM EST [facility] LAB BLOOD ORDERABLES Final Resul t Performing Organization Address [facility]/ZIP Co de Phone Number [facility] [address] [place] [address], [place] [phone] * Microalbumin creatinine urine ratio (04/14/2024 7:40 AM EST) Creatinine, Urine 108.0 mg/dL LAB CHEMISTRY METHOD 04/14/2024 11:25 AM EST [facility] Microalb, Ur 10.5 0.0 - 29.0 mg/L LAB CHEMISTRY METHOD 04/14/2024 11:25 AM EST [facility] Microalb/Creat Ratio 10 <30 mg/g creat LAB CHEMISTRY METHOD 04/14/2024 11:25 AM EST [facility] Urine Urine specimen obtained by clean catch procedure / Unknown Non-blood Collection / Unknown 04/14/2024 7:40 AM EST 04/14/2024 7:40 AM EST [facility] LAB URINE ORDERABLES Final Resul t Performing Organization Address City/[facility]/ZIP Co de Phone Number [facility] [address] [place] [address], [place] [phone] * Basic metabolic panel (04/14/2024 7:40 AM EST) Sodium 137 133 - 145 mmol/L LAB CHEMISTRY METHOD 04/14/2024 10:44 AM EST [facility] Potassium 4.2 3.5 - 5.5 mmol/L LAB CHEMISTRY METHOD 04/14/2024 10:44 AM EST [facility] Chloride 103 96 - 110 mmol/L LAB CHEMISTRY METHOD 04/14/2024 10:44 AM [facility] CO2 30 21 - 32 mmol/L LAB CHEMISTRY METHOD 04/14/2024 10:44 AM [facility] Anion Gap 4 3 - 11 LAB CHEMISTRY METHOD 04/14/2024 10:44 AM [facility] Glucose 100 70 - 100 mg/dL LAB CHEMISTRY METHOD 04/14/2024 10:44 AM [facility] BUN 14 5 - 25 mg/dL LAB CHEMISTRY METHOD 04/14/2024 10:44 AM [facility] Creatinine 0.59 0.50 - 1.10 mg/dL LAB CHEMISTRY METHOD 04/14/2024 10:44 AM [facility] eGFR 103 >=60 mL/min/1. 73m2 LAB CHEMISTRY METHOD 04/14/2024 10:44 AM [facility] Comment:Calculation based on the??Chronic Kidney Disease Epidemiology Collaboration (CKD-EPI) equation refit??without adjustment for race. BUN/Creatinine Ratio 23.7 LAB CHEMISTRY METHOD 04/14/2024 10:44 AM [facility] Calcium 10.0 8.5 - 10.5 mg/dL LAB CHEMISTRY METHOD 04/14/2024 10:44 AM [facility] Blood Venous blood specimen / Unknown Venipuncture / Unknown 04/14/2024 7:40 AM EST 04/14/2024 7:40 AM EST [facility] LAB BLOOD ORDERABLES Final Resul t [facility] [address] [place] [address], * Cervical Cancer Screening: HPV (10/22/2022) Pathologist [facility] Cervical Cancer Screening: HPV abstracted; negative Historical Provider HEALTH MAINTENANCE Final Result * Colonoscopy (09/28/2020) Colonoscopy abstracted; no interperetation Anatomical Region Laterality Modality Other Historical Provider HEALTH MAINTENANCE Final Result * Hepatitis C Screening (11/24/2014) Hepatitis C Screening abstracted Historical Provider HEALTH MAINTENANCE Final Result from Last 3 Months or Most Recently Relevant to Health Maintenance Insurance [phone] (Work) [address] [place] [address] [facility] Care Teams [employer] Relationship Specialty Start Date End Date Emmanuelle Jensen MD [address] [facility] [place] [address] PCP - General 08/11/07
== END 2024-10-21 09:16 | disposition home or self-care (01) ==
LOC: HO.RHES 08:41
PROVIDERS: PCP Internal Medicine; Visit Provider Internal Medicine Rheumatology
DX: M65.4 Radial styloid tenosynovitis [de Quervain] (principal)
CPT/HCPCS: 20550; 99213

== ENCOUNTER → 2024-10-21 08:41 | Outpatient (BNVA) | payer OTHER, SELFPAY | PROVIDERS: PCP Internal Medicine; Visit Provider Internal Medicine Rheumatology | DX: M65.4 Radial styloid tenosynovitis [de Quervain] (principal) | CPT/HCPCS: 20550; J2003; J3300 ==